=== PATIENT | female | born 1995 | race Two or more races ===

== ENCOUNTER → 2020-06-18 | Emergency (ER) | payer MEDICAID ==
[~2020-06-18] VITALS: Ht 167.6 cm; Wt 111.1 kg
[~2020-06-18] MED LIST: HYDR-1421; HYDROcodone-ACET 5/325MG TAB PO ONE; ONDANSETRON ODT 4 MG TAB PO ONE
[2020-06-18 03:11] LABS: Basophils # (auto) 0.1 10 ^3/uL (0-0.2); Basophils % (auto) 0.8 % (0.0-2.0); Eosinophils # (auto) 0.4 10 ^3/uL (0-0.8); Eosinophils % (auto) 3.7 % (0.0-7.0); Hematocrit 42.8 % (36.0-46.0); Hemoglobin 14.1 g/dL (12.2-16.2); Lymphocytes # (auto) 4.7 10 ^3/uL (0.4-5.4); Mean Corpuscular Hemoglobin 27.6 pg (28.0-32.0); Mean Corpuscular Hgb Conc. 32.8 g/dL (32.0-36.0); Mean Corpuscular Volume 84.1 fL (80.0-100.0); Monocytes # (auto) 0.8 10 ^3/uL (0-1.3); Monocytes % (auto) 7.6 % (0.0-12.0); Neutrophils # (auto) 4.9 10 ^3/uL (1.6-8.6); Neutrophils % (auto) 44.9 % (37.0-80.0); Nucleated Red Blood Cells % 0.1 %; Platelet Count (auto) 342 10^3/uL (140-450); Red Blood Cells 5.09 10^6/uL (4.0-5.20); Red Cell Distribution Width 14.2 % (11.8-14.3); White Blood Cell 10.8 10^3/uL (4.4-10.8)
[2020-06-18 03:14] LABS: Urine Bacteria FEW /hpf (None Seen); Urine Blood Negative /uL (Negative); Urine Mucus FEW (None Seen); Urine Specific Gravity 1.033 (1.001-1.035); Urine WBC <1 /hpf (0 - 5)
[2020-06-18 03:30] LABS: Albumin 3.9 g/dL (3.4-5.0); Calcium 8.7 mg/dL (8.5-10.1); Potassium 3.4 mmol/L (3.5-5.1)
[2020-06-18 03:34] LABS: BUN/Creatinine Ratio 15.6; Bilirubin, Total 0.4 mg/dL (0.2-1.0); Total Protein 7.4 g/dL (6.4-8.2)
[2020-06-18 07:00] VITALS: BP 114/67
== END | disposition home or self-care (01) ==
LOC: ER 01:22
DX: M54.16 Radiculopathy, lumbar region (principal); R10.9 Unspecified abdominal pain; F17.210 Nicotine dependence, cigarettes, uncomplicated; Z90.710 Acquired absence of both cervix and uterus; Z88.6 Allergy status to analgesic agent
CPT/HCPCS: 36415; 72131; 74176; 80053; 81001; 81025; 85025; 99285; Q0162

== ENCOUNTER 2020-08-05 19:48 | Emergency (ER) | payer MEDICAID ==
[~2020-08-05] VITALS: Ht 167.6 cm; Wt 113.4 kg
[~2020-08-05 19:48] MED LIST changes: -HYDROcodone-ACET 5/325MG TAB PO ONE; -ONDANSETRON ODT 4 MG TAB PO ONE
[2020-08-05 23:11] VITALS: BP 136/76
[2020-08-05] MEDS ORDERED: TETANUS-DIPTH-ACEL PERTUSSIS 0.5ML SYR Tdap IM ONE (23:45)
[2020-08-05] MEDS ORDERED: LIDOCAINE 1% HCL (LOCAL ANESTH.) INJ 20ML MDV IJ ONE (23:45)
== END 2020-08-06 02:04 | disposition home or self-care (01) ==
LOC: ER 19:48
DX: S61.412A Laceration without foreign body of left hand, initial encounter (principal); J45.909 Unspecified asthma, uncomplicated; F17.210 Nicotine dependence, cigarettes, uncomplicated; Z90.49 Acquired absence of other specified parts of digestive tract; Z88.6 Allergy status to analgesic agent; W25.XXXA Contact with sharp glass, initial encounter; Y93.89 Activity, other specified; Y99.8 Other external cause status; Y92.89 Other specified places as the place of occurrence of the external cause
CPT/HCPCS: 12001; 73130; 90471; 90715

== ENCOUNTER 2021-07-28 20:05 | Emergency (ER) | payer MEDICAID ==
[~2021-07-28] VITALS: Ht 167.6 cm; Wt 106.6 kg
[2021-07-28] MEDS ORDERED: ACETAMINOPHEN 500 MG TAB PO ONE (21:45)
[2021-07-28] MEDS ORDERED: IBUPROFEN 800 MG TAB PO ONE (21:45)
[2021-07-29 00:30] VITALS: BP 136/89
[2021-07-29] MEDS ORDERED: methylPREDNISolone SOD SUCC 125 MG/2 ML VL IM ONE (00:30)
[2021-07-29] MEDS ORDERED: KETOROLAC TROMETH 60MG/2ML VIAL IM ONE (00:30)
== END 2021-07-29 01:15 | disposition home or self-care (01) ==
LOC: ER 20:07
DX: S92.354A Nondisplaced fracture of fifth metatarsal bone, right foot, initial encounter for closed fracture (principal); S80.212A Abrasion, left knee, initial encounter; F17.210 Nicotine dependence, cigarettes, uncomplicated; F12.10 Cannabis abuse, uncomplicated; J45.909 Unspecified asthma, uncomplicated; Z90.49 Acquired absence of other specified parts of digestive tract; Z88.6 Allergy status to analgesic agent; X50.0XXA Overexertion from strenuous movement or load, initial encounter; Y93.89 Activity, other specified; Y92.69 Other specified industrial and construction area as the place of occurrence of the external cause; Y99.0 Civilian activity done for income or pay
CPT/HCPCS: 73560; 73600; 96372; 99284; J1885; J2930; L3260

== ENCOUNTER 2021-12-01 21:06 | Emergency (ER) | payer MEDICAID ==
[~2021-12-01] VITALS: Ht 170.2 cm; Wt 90.7 kg
[2021-12-01] MEDS ORDERED: KETOROLAC TROMETH 60MG/2ML VIAL IM ONE (23:45)
[2021-12-02] MEDS ORDERED: ONDANSETRON HCL 4 MG/2 ML VIAL IM ONE (00:15)
[2021-12-02 00:40] VITALS: BP 138/89
== END 2021-12-02 00:44 | disposition home or self-care (01) ==
LOC: EDBD 21:06 → ER 21:16
DX: S13.4XXA Sprain of ligaments of cervical spine, initial encounter (principal); M25.511 Pain in right shoulder; J45.909 Unspecified asthma, uncomplicated; F17.210 Nicotine dependence, cigarettes, uncomplicated; Z90.49 Acquired absence of other specified parts of digestive tract; Z79.899 Other long term (current) drug therapy; Z88.5 Allergy status to narcotic agent; V43.62XA Car passenger injured in collision with other type car in traffic accident, initial encounter; Y93.89 Activity, other specified; Y92.410 Unspecified street and highway as the place of occurrence of the external cause; Y99.8 Other external cause status
CPT/HCPCS: 72040; 73030; 96372; 99284; J1885; J2405

== ENCOUNTER 2024-06-02 03:29 | Emergency (ER) | payer MEDICAID ==
[~2024-06-02] VITALS: Ht 167.6 cm; Wt 120.5 kg
[2024-06-02 03:42] VITALS: BP 132/91; PULSE 79; RESP 18; O2SAT 99
[2024-06-02] MEDS ORDERED: AMOX875T4 PO (03:54)
[2024-06-02] MEDS ORDERED: ACET500T58 PO (03:54)
[2024-06-02] MEDS: BENZOCAINE (DENTAL) 20 % SPRAY 60ML MT ONE (04:05)
[2024-06-02] MEDS: ACETAMINOPHEN 325 MG TAB PO ONE (04:12)
[2024-06-02] MEDS: cefTRIAXone SOD 1,000 MG VL IM ONE (04:12)
== END 2024-06-02 04:15 | disposition home or self-care (01) ==
LOC: ER 03:29
DX: K04.7 Periapical abscess without sinus (principal); J45.909 Unspecified asthma, uncomplicated; F17.210 Nicotine dependence, cigarettes, uncomplicated; F15.90 Other stimulant use, unspecified, uncomplicated; Z98.890 Other specified postprocedural states; Z88.5 Allergy status to narcotic agent; Z79.899 Other long term (current) drug therapy
CPT/HCPCS: 96372; 99283; J0696

== ENCOUNTER 2025-01-10 18:52 | Emergency (ER) | payer MEDICAID, OTHER ==
[~2025-01-10] VITALS: Ht 175.3 cm; Wt 113.6 kg
[~2025-01-10 18:52] MED LIST changes: +ACET500T58 PO; +AMOX875T4 PO
--- NOTE | 2025-01-10 21:13 | DVH ---
CLINICAL INDICATION: right thumb pain TECHNIQUE: XY R 1ST FINGER XRAY Comparison: None FINDINGS/IMPRESSION: : There is no evidence of acute fracture or dislocation. Soft tissues are unremarkable.
[2025-01-10 22:25] VITALS: BP 131/84; PULSE 94; RESP 18; TEMP 98.6; O2SAT 99
--- NOTE | 2025-01-10 22:39 | ED.PDOC ---
Musculoskeletal HPI Comments 29-year-old female presents to ER with complaints of right hand pain x1 day. Patient reports that she started experiencing 7/10 pain with associated swelling to right 1st finger today at work s/p a strap from a "blocking pad" getting stuck on her right 1st finger and getting pulled back by a special needs client. Denies use of medications for current symptoms and states she does have previous injury to right 1st finger that occurred "2 months ago". Denies numbness/tingling or any further symptoms/complaints Chief Complaint: Upper Extremity Time Seen by MD: 19:32 Primary Care Provider: FLETCHER JAMESON Reviewed Notes: Nurses Notes, Medications, Allergies Allergies: Coded Allergies: Codeine (Unverified Allergy, Unknown, 08/31/14) Home Meds Active Scripts Acetaminophen (Acetaminophen) 500 Mg Tab, 500 MG PO Q4HPRN, #30 TAB 0 Refills Prov:BUZZ GRACE 06/02/24 Amoxicillin & Pot Clavulanate (Amoxicillin/Potassium Cla) 875 Mg Tab, 1 TAB PO BID for 7 Days, #14 TAB 0 Refills Prov:BUZZ GRACE 06/02/24 Reported Medications Hydrocodone-Acetaminophen (Vicodin) 1 Tab Tab 09/18/10 Information Source: Patient Mode of Arrival: Ambulatory Past Medical History PAST MEDICAL HISTORY: Asthma Surgical History: Cholecystectomy SUBCONTRACT ADMINISTRATOR History: No Pertinent SUBCONTRACT ADMINISTRATOR History Family History Family History: Family hx of DM Social History Smoker: Non-Smoker Alcohol: Occasionally Drugs: Marijuana Lives In: Home Constitutional: denies: chills, diaphoresis, fatigue, fever, malaise, sweats, weakness, others EENTM: denies: blurred vision, double vision, ear bleeding, ear discharge, ear drainage, ear pain, ear ringing, eye pain, eye redness, hearing loss, mouth pain, mouth swelling, nasal discharge, nose bleeding, nose congestion, nose pain, photophobia, tearing, throat pain, throat swelling, voice changes, others Respiratory: denies: cough, hemoptysis, orthopnea, SOB at rest, shortness of breath, SOB with excertion, stridor, wheezing, others Cardiovascular: denies: chest pain, dizzy spells, diaphoresis, Dyspnea on exertion, edema, irregular heart beat, left arm pain, lightheadedness, palpita tions, PND, syncope, others Gastrointestinal: denies: abdomen distended, abdominal pain, blood streaked anamaria wels, constipated, diarrhea, dysphagia, difficulty swallowing, hematemesis, melena, nausea, poor appetite, poor fluid intake, rectal bleeding, rectal pain, vomiting, others Genitourinary: denies: abnormal vagina bleeding, burning, dyspareunia, dysuria, flank pain, frequency, hematuria, incontinence, pain, , vagina discharge, urgency, others Neurological: denies: dizziness, fainting, headache, left sided numbness, left sided weakness, numbness, paresthesia, pre-existing deficit, right sided numbness, right sided weakness, seizure, speech problems, tingling, tremors, weakness, others Musculoskeletal: reports: others (As stated in HPI) Integumetry: reports: others (As stated in HPI) Allergic/Immunocompromised: denies: Difficulty Healing, Frequent Infections, Hives, Itching, others Hematologic/Lymphatic: denies: anemia, blood clots, easy bleeding, easy bruising, swollen glands, others Endocrine: denies: excessive hunger, excessive sweating, excessive thirst, excessive urination, flushing, intolerance to cold, intolerance to heat, unexplained weight gain, unexplained weight loss, others Psychiatric: denies: anxiety, bipolar disorder, depression, hopeless, panic disorder, schizophrenia, sleepless, suicidal, others Physical Exam General Appearance: No Apparent Distress, Obese HEENT: NOT DONE Neck: Full Range of Motion, Non-Tender, Normal Respiratory: Chest Non-Tender, Lungs Clear, No Accessory Muscle Use, No Respiratory Distress, Normal Breath Sounds Cardiovascular: No Murmur, No Gallop, Regular Rate/Rhythm Breast Exam: Deferred Gastrointestinal: NOT DONE Genitalia: Deferred Pelvic: Deferred Rectal: Deferred Extremities: Normal capillary refill, Normal range of motion Musculoskeletal : Extremity Location: Thumb (TTP to right 1st finger noted. No skin changes/deformity noted. No TTP to right anatomical snuffbox/TTP to right wrist noted. Pulses intact. Patient able to fully move all fingers of right hand.) Neurologic: Alert, system developer associate manager II-XII nml as Tested, No Motor Deficits, Normal Affect, Normal Mood, No Sensory Deficits Cerebellar Function: Normal Reflexes: Normal Skin: Dry, Normal Color, Warm Peripheral Pulses: 2+ Radial (R), 2+ Radial (L), 2+ Brachial (R), 2+ Brachial (L) Lymphatic: No Adenopathy Was a procedure done? Was a procedure done?: No Sedation Sedation?: No Differential Diagnosis EXT Differential Diagnosis: Fracture, Dislocation, Neurovascular injury X-Ray, Labs, Meds, VS Vital Signs Date Time Temp Pulse Resp B/P (MAP) Pulse Ox O2 Delivery O2 Flow Rate FiO2 01/10/25 19:10 98.6 94 18 131/84 (100) 99 98.6 PATIENT: ÓSCAR ASENCIO LACCT: [id number]: [id number] : 1995 LOC: ER ROOM / BED: / AGE / SEX: 29 / F ADM STATUS: REG ER SERVICE 32 ORDERING PHYSICIAN: BUZZ GRACE PROCEDURE(s): RFIN1 - R 1ST FINGER XRAY REASON: right thumb pain ORDER NUMBER(s): [id number], ACCESSION NUMBER(s): [id number] CLINICAL INDICATION: right thumb pain TECHNIQUE: XY R 1ST FINGER XRAY Comparison: None FINDINGS/IMPRESSION: : There is no evidence of acute fracture or dislocation. Soft tissues are unremarkable. ATED BY: NIKUNJ PAEZ MD DICTATED DATE/TIME: 01/10/252109 SIGNED BY: NIKUNJ PAEZ MD SIGNED DATE/TIME: 01/10/252109 CC: Right 1st finger x-ray reviewed Right thumb spica splint applied Patient neurovascularly intact Advised on rest/no strenuous activity, elevation and alternate ice on/off as needed for pain Wounds comp paperwork filled out Advised to follow up with PCP and workman's comp PCP in 1-2 days Patient verbalized understanding and agreeable with current plan of care Advised to return to ER immediately if symptoms worsen Images Reviewed?: Images reviewed and evaluated by me Time of 1ST Reevaluation: 22:16 Reevaluation 1ST: N/A Patient Education/Counseling: Diagnosis, Treatment, Prognosis, Need For Follow Up Family Education/Counseling: No Family Present Departure 1 Departure Time of Disposition: 22:30 Impression: Primary Impression: Sprain of right thumb Qualified Codes: S63.601A - Unspecified sprain of right thumb, initial encounter Disposition: HOME / SELF CARE / HOMELESS Condition: Stable e-Prescriptions Acetaminophen (Acetaminophen) 500 Mg Tab 500 MG PO Q4HPRN, #30 TAB 0 Refills Prov: BUZZ GRACE 01/10/25 Discharged With: Self Critical Care Note Critical Care Time?: No Stability Stability form required: No Heart Score Heart Score: Heart Score Response (Comments) Value History N/A 0 EKG N/A 0 Age N/A 0 Risk Factors N/A 0 Troponin N/A 0 Total 0 BUZZ GRACE Jan 10, 2025 22:39
== END 2025-01-10 22:50 | disposition home or self-care (01) ==
LOC: ER 18:52
DX: S63.601A Unspecified sprain of right thumb, initial encounter (principal); F12.90 Cannabis use, unspecified, uncomplicated; J45.909 Unspecified asthma, uncomplicated; Z90.49 Acquired absence of other specified parts of digestive tract; Z88.5 Allergy status to narcotic agent; Z79.899 Other long term (current) drug therapy; X58.XXXA Exposure to other specified factors, initial encounter; Y93.89 Activity, other specified; Y92.89 Other specified places as the place of occurrence of the external cause; Y99.8 Other external cause status
CPT/HCPCS: 29125; 29130; 73140